=== PATIENT | male | born 2000 | race Caucasian/White ===

== ENCOUNTER 2023-05-01 00:23 | Emergency (ER) | payer BC, OTHER ==
[2023-05-01] MEDS ORDERED: Ibuprofen 800 MG TAB ONE (00:55)
== END 2023-05-01 01:10 | disposition home or self-care (01) ==
LOC: NAV ERS 00:23
DX: H66.93 Otitis media, unspecified, bilateral (principal); E11.9 Type 2 diabetes mellitus without complications; I10 Essential (primary) hypertension; Z79.899 Other long term (current) drug therapy; Z79.84 Long term (current) use of oral hypoglycemic drugs
CPT/HCPCS: 99282

== ENCOUNTER 2024-09-30 18:41 | Emergency (ER) | payer BC ==
[2024-09-30] MEDS ORDERED: Acetaminophen 500 MG TAB ONE (19:16)
[2024-09-30] MEDS ORDERED: Morphine 4 MG/ML VIAL ONE (19:17)
[2024-09-30] MEDS ORDERED: Sodium Chloride 0.9% 1,000 ML ONE (19:17)
[2024-09-30] MEDS ORDERED: Sodium Chloride 0.9% 100 ML ONE (19:17)
[2024-09-30] MEDS ORDERED: Piperacillin/Tazobactam 3.375 GM VIAL ONE (19:17)
[2024-09-30 20:03] LABS: Hematocrit 45.5 % (42.0-52.0); Hemoglobin 15.5 g/dL (14.0-18.0); Mean Corpuscular Hemoglobin 29.1 pg (27.0-31.0); Mean Corpuscular Volume 85.8 fl (78.0-98.0); Mean Platelet Volume 8.7 fL (7.4-10.4); Platelet Count 188 10x3/uL (130-400); RBC Distribution Width 11.5 % (11.5-14.5); White Blood Cell (WBC) Count 14.9 10x3/uL (4.8-10.8)
[2024-09-30 20:09] LABS: ALT (SGPT) 20 U/L (8-55); AST (SGOT) 18 U/L (5-34); Albumin 3.7 g/dL (3.5-5.0); Alkaline Phosphatase 72 U/L (40-110); Anion Gap 13 mmol/L (10-20); BUN (Urea Nitrogen) 8 mg/dL (8.9-20.6); Bilirubin, Total 1.8 mg/dL (0.2-1.2); Calc. Creatinine Clearance 0 mL/min (70-130); Calcium 8.6 mg/dL (7.8-10.44); Carbon Dioxide 24 mmol/L (22-29); Chloride 106 mmol/L (98-107); Estimated GFR 99; Globulin 3.7 g/dL (2.4-3.5); Glucose 120 mg/dL (70-105); Potassium 3.5 mmol/L (3.5-5.1); Protein, Total 7.4 g/dL (6.0-8.3); Sodium 139 mmol/L (136-145)
[2024-09-30 20:10] LABS: Bilirubin Small (Negative); Blood, Urine Negative (Negative); Clarity Clear (Clear); Glucose, Urine (Dipstick) Negative (Negative); Ketone, Urine Trace mg/dL (Negative); Leukocyte Negative (Negative); Nitrite Negative (Negative); Protein, Urine (Dipstick) 30 mg/dL (Neg-Trace); Specific Gravity, Urine 1.025 (1.005-1.030); Urobilinogen > or = 8.0 mg/dL (Less than 2)
[2024-09-30 21:20] LABS: CAUTI Indications for Culture Fever or rigors; RBC/HPF 0-3 HPF (0-3)
[2024-09-30 21:21] LABS: Bacteria/HPF Rare-Few HPF (None Seen); Mucous/LPF 1+ LPF (<2+); Squamous Epithelial None Seen HPF (0-3)
[2024-09-30 21:22] LABS: Urine Culture Reflex No No
[2024-09-30 21:55] LABS: Band 3 % (5-11); Eosinophils 1 % (0-10); Lymphocytes 13 % (21-51); Monocytes 8 % (0-10); Neutrophil 74 % (42-75); Platelet Adequacy Comment Appears Adequate; RBC Morph Comment Within Normal Limits; Reactive Lymphocytes 1 % (0-10)
[2024-09-30 22:03] LABS: MDiff Complete? YES
== END 2024-09-30 23:01 | disposition short-term general hospital (02) ==
LOC: NAV ERS 18:41
DX: L03.314 Cellulitis of groin (principal); E11.9 Type 2 diabetes mellitus without complications; I10 Essential (primary) hypertension; Z79.899 Other long term (current) drug therapy
CPT/HCPCS: 36415; 74177; 80053; 81001; 83605; 85025; 87040; 96365; 96375; J2272; J2543; J7030